=== PATIENT | female | born 1990 | race American Indian/Alaskan Native ===

== ENCOUNTER 2021-07-12 06:12 | Emergency (ER) | payer OTHER ==
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
[2021-07-12 06:26] VITALS: BP 125/95
[2021-07-12] MEDS: TETANUS,DIPH,PERTUSS(ACELL) VACCINE 0.5 ML SYRINGE IM ONE ×2 (06:47→08:07)
[2021-07-12 06:59] LABS: Basophils % (Auto) 0.3 % (0.0-1.8); Hematocrit 40.5 % (30.3-42.9); Lymphocytes % (Auto) 19.7 % (13.4-35.0); Mean Corpuscular HGB Conc 32 % (30-34); Mean Corpuscular Volume 93 fl (79-97); Monocytes # (Auto) 0.3 K/mm3 (0.0-0.8); Monocytes % (Auto) 6.3 % (0.0-7.3); Platelet Count 215 K/mm3 (140-440); Red Blood Count 4.36 M/mm3 (3.65-5.03); Red Cell Distribution Width 14.7 % (13.2-15.2)
[2021-07-12 07:09] LABS: INR 0.87 (0.87-1.13)
[2021-07-12 07:10] LABS: Partial Thromboplastin Time 23.1 Sec. (24.2-36.6)
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
[2021-07-12 07:24] LABS: Alanine Aminotransferase 20 units/L (7-56); Albumin 4.6 g/dL (3.9-5); Blood Urea Nitrogen 9 mg/dL (7-17); Calcium 8.8 mg/dL (8.4-10.2); Hemolysis Index 51
[2021-07-12 07:31] LABS: BUN/Creatinine Ratio 15
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
[2021-07-12] MEDS ORDERED: KETOROLAC 30 MG/1 ML INJ IM ONE (09:02)
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
== END 2021-07-12 09:33 ==
LOC: ED 06:12 → EEVIPCON 06:12 → ED 09:33
DX: S01.81XA Laceration without foreign body of other part of head, initial encounter (principal); T76.21XA Adult sexual abuse, suspected, initial encounter; S09.90XA Unspecified injury of head, initial encounter; R07.89 Other chest pain; M54.9 Dorsalgia, unspecified; M79.10 Myalgia, unspecified site; F10.20 Alcohol dependence, uncomplicated; Y04.8XXA Assault by other bodily force, initial encounter; V89.2XXA Person injured in unspecified motor-vehicle accident, traffic, initial encounter; Y93.89 Activity, other specified; Y92.89 Other specified places as the place of occurrence of the external cause; Y99.8 Other external cause status
CPT/HCPCS: 36415; 70450; 70486; 71045; 72125; 72128; 72131; 72170; 73030; 80053; 84703; 85025; 85610; 85730; 90715; 96372; 99285; J1885; 80320; G0480